=== PATIENT | female | born 1965 | race Caucasian/White ===

== ENCOUNTER 2023-05-25 11:45 | Day surgery (SDC) | payer OTHER ==
[2023-05-19 12:45] VITALS: BMI 30.9
[2023-05-25] MEDS ORDERED: PROPOFOL 20 ML ONE (12:51)
[2023-05-25 13:05] VITALS: TEMP 97.2
[2023-05-25 13:06] VITALS: BP 121/60; PULSE 68; RESP 18
== END 2023-05-25 13:25 | disposition home or self-care (01) ==
LOC: FASU-ENDO 11:45
PROVIDERS: ATTEND Internal Medicine Gastroenterology
PROC: 0DB68ZX Excision of Stomach, Via Natural or Artificial Opening Endoscopic, Diagnostic (ICD-10-PCS; 2023-05-25)
PROC: 0DB48ZX Excision of Esophagogastric Junction, Via Natural or Artificial Opening Endoscopic, Diagnostic (ICD-10-PCS; 2023-05-25)
PROC: 0DB98ZX Excision of Duodenum, Via Natural or Artificial Opening Endoscopic, Diagnostic (ICD-10-PCS; principal; 2023-05-25 12:42)
DX: K29.50 Unspecified chronic gastritis without bleeding (principal); K21.00 Gastro-esophageal reflux disease with esophagitis, without bleeding; K44.9 Diaphragmatic hernia without obstruction or gangrene; R10.13 Epigastric pain
CPT/HCPCS: 88305-TC; 88342-TC

== ENCOUNTER 2024-05-09 08:58 | Day surgery (SDC) | payer OTHER ==
[2024-05-07 15:31] VITALS: BMI 29.9
[2024-05-09] MEDS ORDERED: PROPOFOL 80 ML ONE (10:14)
[2024-05-09 11:20] VITALS: TEMP 98
[2024-05-09 11:23] VITALS: BP 108/60; PULSE 79; RESP 19
== END 2024-05-09 11:25 | disposition home or self-care (01) ==
LOC: FASU-ENDO 08:58
PROVIDERS: ATTEND Internal Medicine Gastroenterology
PROC: 0DBM8ZX Excision of Descending Colon, Via Natural or Artificial Opening Endoscopic, Diagnostic (ICD-10-PCS; principal; 2024-05-09 10:45)
DX: Z12.11 Encounter for screening for malignant neoplasm of colon (principal); D12.4 Benign neoplasm of descending colon; K64.1 Second degree hemorrhoids; K64.8 Other hemorrhoids; Z86.0100 Personal history of colon polyps, unspecified
CPT/HCPCS: 88305-TC